=== PATIENT | male | born 1975 | race Two or more races ===

== ENCOUNTER 2022-05-30 11:53 | Emergency (ER) | payer MEDICAID, OTHER ==
[~2022-05-30] VITALS: Ht 172.7 cm; Wt 180.0 kg
[2022-05-30 12:21] LABS: Hemoglobin 10.5 g/dL (13.5-17.5)
[2022-05-30 12:24] LABS: Hematocrit 31.6 % (41.0-53.0); Mean Corpuscular Hemoglobin 32.7 pg (28.0-32.0); Mean Corpuscular Hgb Conc. 33.2 g/dL (32.0-36.0); Mean Corpuscular Volume 98.4 fL (80.0-100.0); Red Blood Cells 3.21 10^6/uL (4.5-5.90); Red Cell Distribution Width 15.7 % (11.8-14.3)
[2022-05-30 12:38] LABS: Calcium 8.5 mg/dL (8.5-10.1); Potassium 3.5 mmol/L (3.5-5.1)
[2022-05-30 12:45] LABS: BUN/Creatinine Ratio 7.1; Bilirubin, Total 0.5 mg/dL (0.2-1.0); Total Protein 8.5 g/dL (6.4-8.2)
[2022-05-30 13:05] LABS: Blast Cells 0; Eosinophils % (manual) 0 (0-7); Metamyelocytes % 0; Myelocytes % 0; Promyelocytes % 0
[2022-05-30] MEDS ORDERED: SODIUM CHLORIDE 0.9% 1,000 ML IV ONE ×2 (13:15)
[2022-05-30] MEDS ORDERED: THIAMINE 100mg/ml INJ (200mg/2ml VIAL) IV ONE (13:15)
[2022-05-30 13:16] LABS: Band Neutrophils % (manual) 1; Basophils % (manual) 1 (0.0-2.0); Lymphocytes % (manual) 59 (10.0-50.0); Monocytes % (manual) 6 (0-12); Reactive Lymphocytes 1
[2022-05-30 16:45] VITALS: BP 110/79
== END 2022-05-30 17:24 | disposition left against medical advice (07) ==
LOC: ER 11:53 → EDSEX 11:53 → ER 17:24
DX: S01.01XA Laceration without foreign body of scalp, initial encounter (principal); F10.129 Alcohol abuse with intoxication, unspecified; W22.8XXA Striking against or struck by other objects, initial encounter; Y93.89 Activity, other specified; Y92.89 Other specified places as the place of occurrence of the external cause; Y99.8 Other external cause status; Y90.8 Blood alcohol level of 240 mg/100 ml or more
CPT/HCPCS: 36415; 70450; 71045; 80053; 80320; 85007; 85027; 93005; 96361; 96374; 99285; J3411; J7030

== ENCOUNTER 2022-09-16 09:42 | Emergency (ER) | payer MEDICAID ==
[~2022-09-16] VITALS: Ht 167.6 cm; Wt 89.0 kg
[2022-09-16 10:35] VITALS: BP 109/75
[2022-09-16] MEDS ORDERED: BAC09TP TOP (11:16)
== END 2022-09-16 11:22 | disposition home or self-care (01) ==
LOC: ER 09:42
DX: S61.011A Laceration without foreign body of right thumb without damage to nail, initial encounter (principal); W25.XXXA Contact with sharp glass, initial encounter; Y93.89 Activity, other specified; Y92.89 Other specified places as the place of occurrence of the external cause; Y99.8 Other external cause status

== ENCOUNTER 2022-11-30 15:27 | Inpatient (IN) | payer MEDICAID ==
[~2022-11-30] VITALS: Ht 165.1 cm; Wt 83.5 kg
[~2022-11-30 15:27] MED LIST: BAC09TP TOP
[2022-11-30] MEDS ORDERED: THIAMINE 100mg/ml INJ (200mg/2ml VIAL) IV ONE (17:00)
[2022-11-30] MEDS ORDERED: SODIUM CHLORIDE 0.9% 1,000 ML IV ONE ×2 (17:00)
[2022-11-30 17:18] LABS: Basophils # (auto) 0 10 ^3/uL (0-0.2); Eosinophils # (auto) 0 10 ^3/uL (0-0.8); Lymphocytes # (auto) 0.9 10 ^3/uL (0.4-5.4); Mean Corpuscular Volume 92.8 fL (80.0-100.0); Monocytes # (auto) 0.4 10 ^3/uL (0-1.3); Neutrophils # (auto) 2.4 10 ^3/uL (1.6-8.6)
[2022-11-30 17:20] LABS: Basophils % (auto) 1.3 % (0.0-2.0); Eosinophils % (auto) 0.4 % (0.0-7.0); Hematocrit 30.9 % (41.0-53.0); Hemoglobin 10.3 g/dL (13.5-17.5); Lymphocytes % (auto) 23.8 % (10.0-50.0); Mean Corpuscular Hemoglobin 30.9 pg (28.0-32.0); Mean Corpuscular Hgb Conc. 33.3 g/dL (32.0-36.0); Monocytes % (auto) 10.5 % (0.0-12.0); Nucleated Red Blood Cells % 0.1 %; Red Blood Cells 3.33 10^6/uL (4.5-5.90); Red Cell Distribution Width 17.4 % (11.8-14.3); White Blood Cell 3.7 10^3/uL (4.4-10.8)
[2022-11-30 17:45] LABS: Albumin 3.6 g/dL (3.4-5.0); Calcium 8.7 mg/dL (8.5-10.1)
[2022-11-30 17:48] LABS: Bilirubin, Total 1.2 mg/dL (0.2-1.0); Total Protein 8.4 g/dL (6.4-8.2)
[2022-11-30] MEDS ORDERED: ONDANSETRON HCL 4 MG/2 ML VIAL IV PRN (22:00)
[2022-11-30] MEDS ORDERED: DOCUSATE SOD 100 MG CAP PO PRN (22:00)
[2022-11-30] MEDS ORDERED: NITROGLYCERIN 0.4 MG SL TAB SL PRN (23:15)
[2022-11-30] MEDS ORDERED: MORPHINE SULFATE INJ 2 MG/ml SYRG IV PRN (23:15)
[2022-12-01] MEDS: SODIUM CHLORIDE 0.9% 1,000 ML IV SCH ×3 (05:15→12:45)
[2022-12-01 06:51] LABS: Basophils # (auto) 0.1 10 ^3/uL (0-0.2); Eosinophils # (auto) 0 10 ^3/uL (0-0.8); Eosinophils % (auto) 0.3 % (0.0-7.0); Lymphocytes % (auto) 24.1 % (10.0-50.0); Neutrophils # (auto) 2.1 10 ^3/uL (1.6-8.6); Nucleated Red Blood Cells % 0.1 %
[2022-12-01 06:54] LABS: Hematocrit 29.5 % (41.0-53.0); Hemoglobin 9.8 g/dL (13.5-17.5); Lymphocytes # (auto) 0.9 10 ^3/uL (0.4-5.4); Mean Corpuscular Hemoglobin 30.7 pg (28.0-32.0); Mean Corpuscular Hgb Conc. 33.3 g/dL (32.0-36.0); Mean Corpuscular Volume 92.3 fL (80.0-100.0); Monocytes # (auto) 0.4 10 ^3/uL (0-1.3); Monocytes % (auto) 12.5 % (0.0-12.0); Neutrophils % (auto) 60.1 % (37.0-80.0); Red Cell Distribution Width 17.5 % (11.8-14.3); White Blood Cell 3.6 10^3/uL (4.4-10.8)
[2022-12-01 07:09] LABS: Albumin 3.2 g/dL (3.4-5.0); BUN/Creatinine Ratio 25.5; Calcium 8.3 mg/dL (8.5-10.1); Potassium 3.6 mmol/L (3.5-5.1)
[2022-12-01 07:19] LABS: Bilirubin, Total 1.7 mg/dL (0.2-1.0); Total Protein 7.6 g/dL (6.4-8.2)
[2022-12-01] MEDS ORDERED: THIAMINE 100mg/ml INJ (200mg/2ml VIAL) IV SCH (10:00)
[2022-12-01] MEDS: MULTIPLE VITAMIN TAB PO SCH (10:18)
[2022-12-01 11:10] LABS: Urine Bacteria NONE SEEN /hpf (None Seen); Urine Blood Negative /uL (Negative); Urine Specific Gravity 1.019 (1.001-1.035); Urine WBC 1 /hpf (0 - 3)
[2022-12-01 11:24] LABS: Amphetamine Screen, Urine NEGATIVE (NEGATIVE); Barbiturate Scree,Urine NEGATIVE (NEGATIVE); Benzodiazephine Screen, Urine NEGATIVE (NEGATIVE); Cannabinoid Screen, Urine NEGATIVE (NEGATIVE); Cocaine Screen, Urine NEGATIVE (NEGATIVE); Opiate Scree,Urine NEGATIVE (NEGATIVE); Phencyclidine Screen, Urine NEGATIVE (NEGATIVE)
[2022-12-01 12:22] VITALS: BP 145/98
[2022-12-01] MEDS: MORPHINE SULFATE INJ 2 MG/ml SYRG IV PRN (13:07)
[2022-12-01 14:52] VITALS: BP 128/83
[2022-12-01 17:00] VITALS: BP 143/97
[2022-12-01 20:00] VITALS: BP 132/95
[2022-12-01 22:00] VITALS: BP 132/95
[2022-12-02 05:00] VITALS: BP 132/88
[2022-12-02 05:31] LABS: White Blood Cell 3.2 10^3/uL (4.4-10.8)
[2022-12-02 05:37] LABS: Hemoglobin 10.8 g/dL (13.5-17.5); Mean Corpuscular Hemoglobin 31.2 pg (28.0-32.0); Mean Corpuscular Hgb Conc. 33.6 g/dL (32.0-36.0); Mean Corpuscular Volume 92.7 fL (80.0-100.0); Red Blood Cells 3.45 10^6/uL (4.5-5.90); Red Cell Distribution Width 17.9 % (11.8-14.3)
[2022-12-02 06:01] LABS: Calcium 8.8 mg/dL (8.5-10.1); Potassium 3.6 mmol/L (3.5-5.1)
[2022-12-02 06:05] LABS: Albumin 3.1 g/dL (3.4-5.0); BUN/Creatinine Ratio 16.1; Basophils % (manual) 0 (0.0-2.0); Blast Cells 0; Eosinophils % (manual) 0 (0-7); Magnesium 1.6 mg/dL (1.6-2.6); Metamyelocytes % 0; Myelocytes % 0; Promyelocytes % 0; Reactive Lymphocytes 0
[2022-12-02 06:13] LABS: Bilirubin, Total 1.4 mg/dL (0.2-1.0); Total Protein 8.1 g/dL (6.4-8.2)
[2022-12-02 07:02] LABS: Band Neutrophils % (manual) 2; Lymphocytes % (manual) 48 (10.0-50.0); Monocytes % (manual) 14 (0-12)
[2022-12-02] MEDS: SODIUM CHLORIDE 0.9% 1,000 ML IV SCH (07:32)
[2022-12-02 07:46] VITALS: BP 132/95
[2022-12-02] MEDS: MULTIPLE VITAMIN TAB PO SCH (08:41)
[2022-12-02 09:00] VITALS: BP 121/82
[2022-12-02 12:37] VITALS: BP 127/95
[2022-12-02] MEDS: MORPHINE SULFATE INJ 2 MG/ml SYRG IV PRN (15:56)
[2022-12-02 17:19] VITALS: BP 143/101
[2022-12-02 22:00] VITALS: BP 124/89
[2022-12-03] MEDS: MORPHINE SULFATE INJ 2 MG/ml SYRG IV PRN (04:12)
[2022-12-03 05:00] VITALS: BP 130/95
[2022-12-03 08:00] VITALS: BP 131/99
[2022-12-03] MEDS: MULTIPLE VITAMIN TAB PO SCH (08:18)
[2022-12-03 12:00] VITALS: BP 112/67
== END 2022-12-03 15:22 | disposition home or self-care (01) | DRG 775 ==
LOC: ER 15:35 → OVERFLOW 23:12 → EAST 12-01 12:22 → CENTRAL 12-01 15:02
PROVIDERS: ADMIT Nurse Practitioner Family; ATTEND Internal Medicine
DX: F10.229 Alcohol dependence with intoxication, unspecified (principal); D61.818 Other pancytopenia; K74.60 Unspecified cirrhosis of liver; F10.239 Alcohol dependence with withdrawal, unspecified; G40.909 Epilepsy, unspecified, not intractable, without status epilepticus; R79.89 Other specified abnormal findings of blood chemistry; M25.552 Pain in left hip; Z20.822 Contact with and (suspected) exposure to COVID-19
CPT/HCPCS: 36415; 70450; 71045; 72192; 80053; 80307; 80320; 81001; 83735; 83880; 84484; 85007; 85025; 85027; 87426; 93005; 96374; G0378

== ENCOUNTER 2023-02-23 23:47 | Emergency (ER) | payer MEDICAID ==
[~2023-02-23] VITALS: Ht 175.3 cm; Wt 80.0 kg
[2023-02-24 01:32] LABS: Hematocrit 35.2 % (41.0-53.0); Hemoglobin 11.9 g/dL (13.5-17.5); Mean Corpuscular Hemoglobin 29.9 pg (28.0-32.0); Mean Corpuscular Hgb Conc. 33.7 g/dL (32.0-36.0); Mean Corpuscular Volume 88.7 fL (80.0-100.0); Red Blood Cells 3.97 10^6/uL (4.5-5.90); Red Cell Distribution Width 17.2 % (11.8-14.3); White Blood Cell 5.7 10^3/uL (4.4-10.8)
[2023-02-24 01:51] LABS: Albumin 3.6 g/dL (3.4-5.0); BUN/Creatinine Ratio 8.8 (10.0-20.0); Calcium 8.8 mg/dL (8.5-10.1); Potassium 3.6 mmol/L (3.5-5.1)
[2023-02-24 01:55] LABS: Bilirubin, Total 0.4 mg/dL (0.2-1.0); Total Protein 8.9 g/dL (6.4-8.2)
[2023-02-24 02:00] LABS: Band Neutrophils % (manual) 0; Basophils % (manual) 0 (0.0-2.0); Blast Cells 0; Eosinophils % (manual) 0 (0-7); Lymphocytes % (manual) 61 (10.0-50.0); Metamyelocytes % 0; Monocytes % (manual) 2 (0-12); Myelocytes % 0; Promyelocytes % 0; Reactive Lymphocytes 0
[2023-02-24 08:35] VITALS: BP 120/86
== END 2023-02-24 08:46 | disposition home or self-care (01) ==
LOC: ER 23:47 → EDBD 23:47 → ER 02-24 08:40
DX: F10.129 Alcohol abuse with intoxication, unspecified (principal); E86.0 Dehydration; D64.9 Anemia, unspecified; D69.6 Thrombocytopenia, unspecified; R74.8 Abnormal levels of other serum enzymes; Z86.73 Personal history of transient ischemic attack (TIA), and cerebral infarction without residual deficits; Y90.8 Blood alcohol level of 240 mg/100 ml or more
CPT/HCPCS: 36415; 71045; 80053; 80320; 84484; 85007; 85027

== ENCOUNTER 2023-05-09 00:57 | Inpatient (IN) | payer MEDICAID ==
[~2023-05-09] VITALS: Ht 167.6 cm; Wt 81.8 kg
[2023-05-09 02:09] LABS: Basophils # (auto) 0.1 10 ^3/uL (0-0.2); Basophils % (auto) 0.9 % (0.0-2.0); Calcium 8.5 mg/dL (8.5-10.1); Eosinophils # (auto) 0 10 ^3/uL (0-0.8); Eosinophils % (auto) 0.7 % (0.0-7.0); Hematocrit 36.8 % (41.0-53.0); Hemoglobin 12.3 g/dL (13.5-17.5); Lymphocytes # (auto) 2.8 10 ^3/uL (0.4-5.4); Lymphocytes % (auto) 46.4 % (10.0-50.0); Mean Corpuscular Hemoglobin 31.2 pg (28.0-32.0); Mean Corpuscular Hgb Conc. 33.5 g/dL (32.0-36.0); Mean Corpuscular Volume 93.1 fL (80.0-100.0); Monocytes # (auto) 0.6 10 ^3/uL (0-1.3); Monocytes % (auto) 9.4 % (0.0-12.0); Neutrophils # (auto) 2.6 10 ^3/uL (1.6-8.6); Neutrophils % (auto) 42.6 % (37.0-80.0); Nucleated Red Blood Cells % 0.1 %; Potassium 3.4 mmol/L (3.5-5.1); Red Blood Cells 3.95 10^6/uL (4.5-5.90); Red Cell Distribution Width 17.1 % (11.8-14.3)
[2023-05-09 02:12] LABS: Albumin 3.6 g/dL (3.4-5.0); BUN/Creatinine Ratio 13.6 (10.0-20.0)
[2023-05-09 02:18] LABS: Bilirubin, Total 0.6 mg/dL (0.2-1.0); Total Protein 8.5 g/dL (6.4-8.2)
[2023-05-09 06:00] VITALS: BP 101/74
[2023-05-09] MEDS ORDERED: SODIUM CHLORIDE 0.9% 1,000 ML IV ONE (06:15)
[2023-05-09] MEDS ORDERED: LIDOCAINE 1% HCL (LOCAL ANESTH.) INJ 20ML MDV ONE (06:31)
[2023-05-09] MEDS ORDERED: LORazepam 2MG/ML-1ML VIAL IV PRN (06:45)
[2023-05-09] MEDS ORDERED: chlordiazePOXIDE HCL 25 MG CAP PO PRN (06:45)
[2023-05-09] MEDS ORDERED: MORPHINE SULFATE INJ 2 MG/ml SYRG IV PRN (06:45)
[2023-05-09] MEDS ORDERED: ACETAMINOPHEN 325 MG TAB PO PRN (06:45)
[2023-05-09] MEDS ORDERED: ONDANSETRON HCL 4 MG/2 ML VIAL IV PRN (06:45)
[2023-05-09] MEDS ORDERED: NITROGLYCERIN 0.4 MG SL TAB SL PRN (06:45)
[2023-05-09] MEDS ORDERED: GABAPENTIN 100 MG CAP PO SCH (10:00)
[2023-05-09] MEDS ORDERED: FOLIC ACID 1 MG, MULTIPLE VITAMIN 10 ML, MAGNESIUM SULF SDV 50% 8 MEQ, THIAMINE INJ 100... INJ SCH ×10 (12:00)
== END 2023-05-09 08:13 | disposition left against medical advice (07) | DRG 53 ==
LOC: ER 00:57 → EDBD 00:57 → TELE 06:41
PROVIDERS: ADMIT Nurse Practitioner; ATTEND Internal Medicine
DX: R56.9 Unspecified convulsions (principal); F10.129 Alcohol abuse with intoxication, unspecified; Y90.8 Blood alcohol level of 240 mg/100 ml or more; S01.01XA Laceration without foreign body of scalp, initial encounter; Z53.29 Procedure and treatment not carried out because of patient's decision for other reasons; T51.0X1A Toxic effect of ethanol, accidental (unintentional), initial encounter; W18.39XA Other fall on same level, initial encounter; Y93.89 Activity, other specified; Y92.89 Other specified places as the place of occurrence of the external cause; Z86.73 Personal history of transient ischemic attack (TIA), and cerebral infarction without residual deficits; Y99.8 Other external cause status
CPT/HCPCS: 12004; 36415; 70450; 71045; 72125; 80053; 80320; 84484; 85025; G0378; J2001

== ENCOUNTER 2024-01-28 20:04 | Emergency (ER) | payer MEDICAID ==
[~2024-01-28] VITALS: Ht 167.6 cm; Wt 79.8 kg
[2024-01-28 21:48] LABS: Urine Bacteria NONE SEEN /hpf (None Seen); Urine Blood Negative /uL (Negative); Urine Clarity Clear (Clear); Urine Color Yellow (Yellow); Urine Protein, UAD Negative (Negative); Urine Specific Gravity 1.012 (1.001-1.035); Urine Urobilinogen Normal (Negative); Urine WBC <1 /hpf (0 - 3)
[2024-01-28] MEDS ORDERED: CHL25C PO (22:27)
[2024-01-29] MEDS: LORazepam 2MG/ML-1ML VIAL IM ONE (01:40)
[2024-01-29] MEDS ORDERED: CHL25C PO (01:43)
[2024-01-29 01:46] VITALS: PULSE 105; RESP 16; O2SAT 95
[2024-01-29 01:47] VITALS: BP 127/92; PULSE 105; RESP 16; TEMP 97.7; O2SAT 95
== END 2024-01-29 02:00 | disposition home or self-care (01) ==
LOC: ER 20:04
DX: F10.939 Alcohol use, unspecified with withdrawal, unspecified (principal); I10 Essential (primary) hypertension; Z86.73 Personal history of transient ischemic attack (TIA), and cerebral infarction without residual deficits; Z98.890 Other specified postprocedural states; Z79.899 Other long term (current) drug therapy; Y90.0 Blood alcohol level of less than 20 mg/100 ml
CPT/HCPCS: 81001; 96372; 99283; J2060

== ENCOUNTER 2024-02-04 01:13 | Emergency (ER) | payer MEDICAID ==
[~2024-02-04] VITALS: Ht 162.6 cm; Wt 79.8 kg
[~2024-02-04 01:13] MED LIST changes: +CHL25C PO
[2024-02-04 01:40] VITALS: BP 122/96; PULSE 94; RESP 16; O2SAT 91
[2024-02-04] MEDS ORDERED: NAP500T PO (02:16)
== END 2024-02-04 02:25 | disposition home or self-care (01) ==
LOC: ER 01:13
DX: M25.512 Pain in left shoulder (principal); I10 Essential (primary) hypertension; Z86.73 Personal history of transient ischemic attack (TIA), and cerebral infarction without residual deficits

== ENCOUNTER 2024-02-23 05:21 | Emergency (ER) | payer MEDICAID ==
[~2024-02-23] VITALS: Ht 157.5 cm; Wt 80.0 kg
[~2024-02-23 05:21] MED LIST changes: +NAP500T PO
[2024-02-23 06:34] VITALS: BP 112/71; PULSE 91; RESP 18; TEMP 98.3; O2SAT 98
[2024-02-23] MEDS ORDERED: BENZ100C97 PO (07:22)
[2024-02-23] MEDS ORDERED: ACET500T58 PO (07:22)
== END 2024-02-23 07:26 | disposition home or self-care (01) ==
LOC: ER 05:21 → EDBD 05:21 → ER 07:26
DX: B34.9 Viral infection, unspecified (principal); J06.9 Acute upper respiratory infection, unspecified; I10 Essential (primary) hypertension; Z86.73 Personal history of transient ischemic attack (TIA), and cerebral infarction without residual deficits
CPT/HCPCS: 71045; 93005

== ENCOUNTER 2024-02-23 20:15 | Emergency (ER) | payer MEDICAID ==
[~2024-02-23] VITALS: Ht 170.2 cm; Wt 70.0 kg
[~2024-02-23 20:15] MED LIST changes: +ACET500T58 PO; +BENZ100C97 PO
[2024-02-23] MEDS ORDERED: ETOMIDATE (2MG/ML) 20ML VIAL IV ONE (21:15)
[2024-02-23] MEDS ORDERED: ROCURONIUM 10MG/ML 10ML VIAL IV ONE (21:15)
== END 2024-02-23 20:18 | disposition short-term general hospital (02) ==
LOC: EDBD 20:15 → ER 20:15
DX: S09.93XA Unspecified injury of face, initial encounter (principal); T14.8XXA Other injury of unspecified body region, initial encounter; V89.2XXA Person injured in unspecified motor-vehicle accident, traffic, initial encounter; Y93.89 Activity, other specified; Y92.410 Unspecified street and highway as the place of occurrence of the external cause; Y99.8 Other external cause status
CPT/HCPCS: 31500